=== PATIENT | male | born 1970 | race Caucasian/White ===

== ENCOUNTER 2021-07-17 01:25 | Emergency (ER) | payer SELFPAY ==
[2021-07-17 02:19] LABS: BASOPHIL 0.9 % (0-2); EOSINOPHIL 0.2 % (0-5); HCT 47.7 % (42.0-52.0); HGB 16.4 g/dl (13.2-18.0); LYMPHOCYTE 15.2 % (15-48); MCH 33.1 pg (25.0-31.0); MCHC 34.4 g/dL (32.0-36.0); MCV 96.2 fL (78.0-100.0); MONOCYTE 13.1 % (0-12); MPV 10.6 fL (6.0-9.5); NEUTROPHIL 70.2 % (41-80); NRBC 0; PLT 155 K/uL (150-400); RBC 4.96 M/uL (4.70-6.00); WBC 8.2 K/uL (4.0-10.5)
[2021-07-17 02:23] LABS: INR 1.15 (0.9-1.2); PROTHROMBIN TIME 14.1 SECONDS (11.8-13.4); PTT 27.5 SECONDS (24.4-34.7)
[2021-07-17 02:54] LABS: ALBUMIN 4.1 g/dL (3.4-5.0); BILIRUBIN - TOTAL 2.3 mg/dL (0.2-1.0); CREATININE 0.71 mg/dL (0.67-1.17); FOLIC ACID (SERUM) 19.5 ng/mL (8.6-58.9); GLOBULIN (CALCULATION) 4.6 g/dL; POTASSIUM 3.9 mmol/L (3.5-5.1); TOTAL PROTEIN 8.7 g/dL (6.4-8.2)
[2021-07-17 04:38] LABS: BILIRUBIN 1+ mg/dL (NEGATIVE); BLOOD TRACE-INTACT Ery/uL (NEGATIVE); GLUCOSE (U) NORMAL (NORMAL); LEUKOCYTES NEGATIVE Leu/uL (NEGATIVE); NITRITE NEGATIVE (NEGATIVE); PROTEIN 2+ mg/dL (NEGATIVE)
[2021-07-17 04:39] LABS: CLARITY CLEAR (CLEAR); COLOR AMBER (YELLOW)
[2021-07-17 04:40] LABS: AMPHETAMINES NEGATIVE (NEGATIVE); BARBITURATES NEGATIVE (NEGATIVE); ECSTASY (MDMA) NEGATIVE (NEGATIVE); MARIJUANA (THC) NEGATIVE (NEGATIVE); METHADONE NEGATIVE (NEGATIVE); OPIATES NEGATIVE (NEGATIVE); OXYCODONE NEGATIVE (NEGATIVE)
[2021-07-17 04:43] LABS: BACTERIA TRACE; URINARY RBC RARE
== END 2021-07-17 23:05 ==
LOC: EDBD 01:25 → FER 01:25
PROVIDERS: Internal Medicine
DX: G93.41 Metabolic encephalopathy (principal); F10.139 Alcohol abuse with withdrawal, unspecified; I10 Essential (primary) hypertension; Z88.8 Allergy status to other drugs, medicaments and biological substances; Z20.822 Contact with and (suspected) exposure to COVID-19
CPT/HCPCS: 36415; 70450; 80053; 80305; 81001; 82607; 82746; 83605; 83690; 84145; 84443; 84484; 85025; 85610; 85730; 93005; 96372; J2560; J3360; J3411; J3486; J7120; U0002